=== PATIENT | female | born 1995 | race Caucasian/White ===

== ENCOUNTER 2016-12-24 06:50 | Emergency (ER) | payer OTHER ==
[~2016-12-24] VITALS: Ht 154.9 cm; Wt 57.0 kg
[2016-12-24 06:54] VITALS: Ht 154.9 cm; Wt 57.0 kg
[2016-12-24] MEDS ORDERED: ONDANSETRON 4 MG INJ IV STA (07:52)
[2016-12-24] MEDS ORDERED: KETOROLAC 30 MG INJ IV STA (07:52)
--- NOTE | 2016-12-24 07:52 | ERD ---
ER Documentation Chief Complaint Date/Time DATE: 12/24/16 TIME: 07:46 Chief Complaint CAME IN VIA INTAKE DUE TO LEFT FLANK PAIN AND FEVER SINCE LAST NIGHT HPI 21-year-old female presents emergency department for left flank pain that started last night. Reports that she felt like she had a fever last night but she never took her temperature. Had a nonbilious and nonbloody vomiting 4 in the past 24 hours. Has difficulty walking due to abdominal pain. Last menstrual period: 12/12/2016 A0. Denies headache, loss of consciousness, dizziness, blurry vision, changes in vision, photophobia, facial pain, ear pain, throat pain, difficulty swallowing, neck pain, shoulder pain, chest pain, cough, hemoptysis, loss of appetite, hematochezia, diarrhea, constipation, urinary symptoms, , the possibility of being , bladder and bowel incontinences, extremity weakness, extremity tenderness, numbness or tingling sensation, difficulty walking, recent travel, recent exposure to illness, recent antibiotic use in the last 3 months. No known drug allergies. No past medical history. No surgical history. Not taking any prescription medications at home. Social history: Not working at this time. Denies smoking, use of alcohol, use of illegal drugs. ROS All systems reviewed and are negative except as per history of present illness. Medications Home Meds Active Scripts Ondansetron Hcl* (Zofran*) 4 Mg Tablet, 4 MG PO Q8H Y for NAUSEA AND/OR VOMITING , #30 TAB Prov:PASILABAN,KLAR F 12/24/16 Acetaminophen* (Tylophen*) 500 Mg Capsule, 1 CAP PO Q6H Y for PAIN AND OR ELEVATED TEMP, #20 CAP Prov:PASILABAN,KLAR F 12/24/16 Ibuprofen* (Motrin*) 600 Mg Tab, 600 MG PO Q8 Y for PAIN, #30 TAB Prov:PASILABAN,KLAR F 12/24/16 Physical Exam Vitals Vital Signs Date Time Temp Pulse Resp B/P Pulse Ox O2 Delivery O2 Flow Rate FiO2 12/24/16 06:54 99.4 64 18 125/73 99 Physical Exam CONSTITUTIONAL: Well-appearing; well-nourished; in no apparent distress. HEAD: Normocephalic; atraumatic. EYES: Conjunctiva clear, sclera non-icteric, EOM intact. PERRL Ears: Hearing intact. EACs clear, TMs non-bulging, non-inflamed, translucent & mobile, ossicles normal appearance, No obstructions, no erythema, no discharges Nose: No obstructions. No polyps. No external lesions. Mucosa non-inflamed. No external lesions, septum and turbinates normal. No rhinorrhea. No discharges. Frontal sinus is non-tender to palpation. Maxillary sinus is non-tender to palpation. MOUTH: Moist mucous membranes, no lesion, no obstructions, no vesicles, no thrush, patent airway Throat: Uvula in midline. Right tonsil is +1 with no erythema, no exudate. Left tonsil is +1 with no erythema, no exudate. Tolerating secretions well. Good gag reflex. Patent airway. Neck: Supple, without lesions, bruits, or adenopathy. No mass. Thyroid non- enlarged and non-tender to palpation. CHEST: Symmetrical chest. Respirations even and not labored. No retractions noted. CARDIOVASCULAR: Normal S1, S2. RRR. No murmurs, gallops. RESPIRATORY: Normal chest excursion with respiration; breath sounds clear and equal bilaterally; no wheezes, rhonchi, or rales. Breathing even and unlabored. Speaking in clear, full, and complete sentences w/ ease. ABDOMEN: Normal bowel sounds normal. Soft, round, non-distended, non-guarding, no rebound, no organomegaly, no masses, no pulsating abdominal mass. Has lower abdominal tenderness on palpation. Difficulty walking due to left flank pain and lower abdominal pain. No hernia. No peritoneal signs. : Left-sided CVA tenderness. BACK: Symmetrical shoulder. Spine is midline without deformity, tenderness. No evidence of trauma or deformity. PELVIS: Stable pelvis. No evidence of trauma or deformity. MUSCULOSKELETAL: Normal gait and station. No misalignment, asymmetry, crepitation, defects, tenderness, masses, effusions, decreased range of motion, instability, atrophy or abnormal strength or tone in the head, neck, spine, ribs , pelvis or extremities. No calf tenderness. NEUROVASCULAR: Distal pulses are present. Pedal pulse are present, equal, and normal. Capillary refills are < 2 seconds. NEUROLOGIC: Alert and oriented x4. Speaks full and clear sentences. Cranial Nerves II-XII normal. Sensation to pain, touch, and proprioception normal. Grossly unremarkable. No neurologic deficits. Romberg test is negative. PSYCHOLOGICAL: The patients mood and manner are appropriate. No hallucinations , delusions. Not SI. Not HI. Has the capacity to decide for self SKIN: Normal for age and ethnicity; warm; dry; good turgor; no apparent lesions or exudates. No rashes, hives, discoloration. Intact. Result Diagram: 12/24/16 0800 12/24/16 0800 Results 24 hrs Laboratory Tests Test 12/24/16 08:00 White Blood Count 9.910^3/ul Red Blood Count 3.8410^6/ul Hemoglobin 11.5g/dl Hematocrit 34.9% Mean Corpuscular Volume 90.9fl Mean Corpuscular Hemoglobin 29.9pg Mean Corpuscular Hemoglobin Concent 33.0g/dl Red Cell Distribution Width 12.8% Platelet Count 62275^3/UL Mean Platelet Volume 9.9fl Neutrophils % 79.3% Lymphocytes % 14.9% Monocytes % 4.2% Eosinophils % 0.6% Basophils % 0.7% Nucleated Red Blood Cells % 0.0/100WBC Neutrophils # 7.810^3/ul Lymphocytes # 1.510^3/ul Monocytes # 0.410^3/ul Eosinophils # 0.110^3/ul Basophils # 0.110^3/ul Nucleated Red Blood Cells # 0.010^3/ul Urine Color YELLOW Urine Clarity CLOUDY Urine pH 6.0 Urine Specific [place] 1.020 Urine Ketones NEGATIVEmg/dL Urine Nitrite NEGATIVEmg/dL Urine Bilirubin NEGATIVEmg/dL Urine Urobilinogen NEGATIVEmg/dL Urine Leukocyte Esterase NEGATIVELeu/ul Urine Microscopic RBC > 182/HPF Urine Microscopic WBC 9/HPF Urine Squamous Epithelial Cells FEW/HPF Urine Hemoglobin 3+mg/dL Urine Glucose NEGATIVEmg/dL Urine Total Protein 1+mg/dl Sodium Level 144mmol/L Potassium Level 3.9mmol/L Chloride Level 101mmol/L Carbon Dioxide Level 26mmol/L Anion Gap 21 Blood Urea Nitrogen 14mg/dl Creatinine 0.76mg/dl Glucose Level 137mg/dl Calcium Level 9.9mg/dl Total Bilirubin 0.4mg/dl Direct Bilirubin 0.00mg/dl Indirect Bilirubin 0.4mg/dl Aspartate Amino Transf (AST/SGOT) 21IU/L Alanine Aminotransferase (ALT/SGPT) 22IU/L Alkaline Phosphatase 79IU/L Total Protein 7.5g/dl Albumin 4.6g/dl Globulin 2.90g/dl Albumin/Globulin Ratio 1.58 Amylase Level 79U/L Lipase 77U/L Current Medications Medications (Trade) Dose Ordered Sig/Pool Route PRN Reason Start Time Stop Time Status Last Admin Dose Admin Ondansetron HCl (Zofran Inj) 4 mg ONCE STAT IV 12/24/16 07:52 12/24/16 07:57 DC 12/24/16 08:02 Ketorolac Tromethamine 30 mg 30 mg ONCE STAT IV 12/24/16 07:52 12/24/16 07:57 DC 12/24/16 08:06 Sodium Chloride 1,000 ml @ 1,000 mls/hr Q1H ONCE IV 12/24/16 08:00 12/24/16 08:59 DC 12/24/16 08:06 Sodium Chloride (NS) 100 ml @ ud STK-MED ONCE .ROUTE 12/24/16 09:41 12/24/16 09:42 DC Iohexol (Omnipaque 300mg/ ml) 150 ml STK-MED ONCE .ROUTE 12/24/16 09:41 12/24/16 09:42 DC Procedures/MDM Examination: Please see physical examination. Disease process, medical treatment was explained to the patient and family member. They verbalized understanding and agreed with the diagnostic tests, medical treatment, and follow-up care. Radiology: CT of the abdomen and pelvis with IV contrast Impression: There is mild periportal edema. There is a small amount of free fluid in the cul-de-sac. There is small umbilical hernia containing fat. No evidence of appendicitis or diverticulitis. No obstructing ureterolithiasis or nephrolithiasis is identified. Case was discussed with supervising physician, Dr. Geronimo Burnett who recommended pelvic exam. Patient refused pelvic exam stating that she is not comfortable to have this procedure/examination at this time and prefers to follow-up with her primary care physician in the next 24-48 hours and have her primary care physician refer her to [facility] in the next 48 hours. Patient's decision of not having pelvic exam was discussed with supervising physician, Dr. Geronimo Burnett who agreed with the medical decision making to discharge the patient. Blood works: Reviewed. POC urine : Negative. Urine was sent for gonorrhea and chlamydia test: Awaiting for results. Urinalysis: Reviewed. Treatment: IV insertion. Normal saline 1 L bolus 1. Zofran IV 1. Toradol IV 1. Re-evaluation: Denies headache, dizziness, blurry vision, neck pain, shoulder pain, chest pain, back pain, abdominal pain, nausea, vomiting. No episode of emesis in the emergency department. Alert and oriented 4. Speaks full and clear sentences. Respirations even and unlabored. Lung sounds clear to auscultation. Active bowel sounds. There is no right upper/right lower/ epigastric/left upper/left lower abdominal tenderness and light and deep palpation. Negative on Rovsings sign. Negative Brett sign. No peritoneal signs. Ambulatory with steady gait. No neurovascular deficits. No neurological deficits. Consultation: None. Differential diagnosis: Appendicitis versus cholecystitis versus pancreatitis versus nephrolithiasis versus pyelonephritis versus urinary tract infection Medical decision m[age]-year-old female presents emergency department for left flank pain that started last night. Reports that she felt like she had a fever last night but she never took her temperature. Had a nonbilious and nonbloody vomiting 4 in the past 24 hours. Has difficulty walking due to abdominal pain. Patient's complaint, patient's history about her complaint, my physical findings, diagnostic test results, my reevaluation are consistent with final diagnosis of pelvic pain, abdominal pain. Hemodynamically stable on discharge. Medications prescribed are the following: Motrin. Zofran. Tylenol. Patient and family member are made aware of the side effects and adverse reactions of the medications prescribed. Instructed on when to seek emergent and medical attention in case allergic/anaphylactic reactions or severe side effects and or adverse reactions to medications. Patient and family member verbalized understanding. Patient instructed Instructed to follow-up with his PCP in 24-48 hours. PCP to refer patient to [facility] in the next 48 hours. Instructed to Call 911 for chest pain, shortness of breath. Advised to come back here in ED as soon as possible for severity of symptoms which includes but not limited to: any new symptoms; shortness of breath/difficulty of breathing; cardiovascular changes; severe gastrointestinal symptoms; signs and symptoms of bleeding and or infection; signs of compartment syndrome/neurovascular changes; neurological changes/deficits. Patient and family member verbalized understanding. Upon discharge, patient is alert and oriented x 4, speaks full and clear sentences, denies pain, has no neurological deficits, has no neurovascular deficits, difficulty of breathing. Breathing even and unlabored. Lung sounds are clear to auscultation. Not in distress. Appears comfortable. Ambulatory with steady gait. Appears satisfied with care provided here in ED. Departure Diagnosis: Primary Impression: Abdominal pain Additional Impression: Pelvic pain Condition: Stable Additional Instructions: Instructed to follow-up with his PCP in 24-48 hours. PCP to refer patient to [facility] in the next 48 hours. Instructed to Call 911 for chest pain, shortness of breath. Advised to come back here in ED as soon as possible for severity of symptoms which includes but not limited to: any new symptoms; shortness of breath/difficulty of breathing; cardiovascular changes; severe gastrointestinal symptoms; signs and symptoms of bleeding and or infection; signs of compartment syndrome/neurovascular changes; neurological changes/deficits. Patient and family member verbalized understanding. AMANDA FELIX Dec 24, 2016 07:52
[2016-12-24] MEDS ORDERED: SOD CHLORIDE 0.9% 1,000 ML IV ONE (08:00)
[2016-12-24 08:17] LABS: ADD SCAN DIFF NO
[2016-12-24 08:34] LABS: BASOPHIL # 0.1 10^3/ul (0.0-0.1); BASOPHILS % 0.7 % (0.0-2.0); EOSINOPHILS # 0.1 10^3/ul (0.0-0.5); EOSINOPHILS % 0.6 % (0.0-7.0); HEMATOCRIT 34.9 % (37.0-47.0); HEMOGLOBIN 11.5 g/dl (12.0-16.0); LYMPHOCYTES # 1.5 10^3/ul (0.8-2.9); LYMPHOCYTES % 14.9 % (18.0-55.0); MEAN CORPUSCULAR HEMOGLOBIN 29.9 pg (29.0-33.0); MEAN CORPUSCULAR VOLUME 90.9 fl (72.0-104.0); MEAN PLATELET VOLUME 9.9 fl (7.4-10.4); MONOCYTE # 0.4 10^3/ul (0.3-0.9); MONOCYTES % 4.2 % (0.0-13.0); NEUTROPHIL # 7.8 10^3/ul (1.6-7.5); NEUTROPHILS % 79.3 % (30.0-74.0); PLATELET COUNT 268 10^3/UL (140-415); RED BLOOD COUNT 3.84 10^6/ul (4.20-5.40); RED CELL DISTRIBUTION WIDTH 12.8 % (11.5-14.5); WHITE BLOOD COUNT 9.9 10^3/ul (4.8-10.8)
[2016-12-24 08:36] LABS: ADD UMIC YES; UR ASCORBIC ACID NEGATIVE (NEGATIVE); UR BILIRUBIN (Dip) NEGATIVE (NEGATIVE); UR BLOOD (Dip) 3+ mg/dL (NEGATIVE); UR CLARITY CLOUDY (CLEAR); UR COLOR YELLOW (YELLOW); UR GLUCOSE (Dip) NEGATIVE (NEGATIVE); UR KETONES (Dip) NEGATIVE (NEGATIVE); UR LEUKOCYTE ESTERASE (Dip) NEGATIVE Leu/ul (NEGATIVE); UR NITRITE (Dip) NEGATIVE (NEGATIVE); UR RBC > 182 /HPF (0-5); UR SQUAMOUS EPITHELIAL CELL FEW /HPF (FEW); UR TOTAL PROTEIN (Dip) 1+ mg/dl (NEGATIVE); UR UROBILINOGEN (Dip) NEGATIVE (NEGATIVE)
[2016-12-24 08:50] LABS: ALBUMIN 4.6 g/dl (3.3-4.9); ALBUMIN/GLOBULIN RATIO 1.58; BILIRUBIN,INDIRECT 0.4 mg/dl (0-1.1); BILIRUBIN,TOTAL 0.4 mg/dl (0.2-1.3); CALCIUM 9.9 mg/dl (8.4-10.2); CREATININE 0.76 mg/dl (0.44-1.00); POTASSIUM 3.9 mmol/L (3.5-5.1); TOTAL PROTEIN 7.5 g/dl (6.1-8.1)
[2016-12-24] MEDS ORDERED: SOD CHLORIDE 0.9% 100 ML ONE (09:41)
[2016-12-24] MEDS ORDERED: IOHEXOL 300MG/ML 150 ML BTL ONE (09:41)
--- NOTE | 2016-12-24 10:12 | RADRPT ---
PROCEDURE: CT scan of the abdomen and pelvis with IV contrast. CLINICAL INDICATION: 21-year-old female with abdominal pain and difficulty walking. TECHNIQUE: Thin section axial, coronal and sagittal images were performed through the abdomen and pelvis following uncomplicated intravenous administration of 80 ccs of Omnipaque-300 contrast. Radiation Dose: CTDI: 6 and DLP: 295 One or more of the following dose reduction techniques were used: - Automated exposure control. - Adjustment of the mA and/or kV according to patient size. Use of iterative reconstruction technique. COMPARISON: None FINDINGS: Soft tissues: There is a small midline umbilical hernia measuring up to 1.3 cm AP. Lungs and pleural spaces: The lungs are mildly hyperinflated. The pulmonary vasculature is normal. No infiltrate or pulmonary nodule is identified. There is no evidence of a pleural effusion. Heart: Normal. The liver, common bile duct and gallbladder: There is periportal edema. The hepatic and portal vein s are patent. The liver is normal in size measuring 13.7 cm AP. No hepatic mass or intrahepatic bi liary ductal dilatation is identified. The gallbladder and gallbladder wall are normal. Gastrointestinal: The stomach and small bowel loops are normal. There is fecal material in the asce nding colon. There is no evidence of diverticulosis, diverticulitis or appendicitis. The vermiform appendix is normal. Pancreas: The pancreas and extrahepatic common bile duct are normal. Kidneys, bladder and adrenal glands : Normal. No obstructing ureterolith or nephrolith is identifie d. Spleen: Normal. Lymph nodes: Normal. Reproductive system and pelvis : Normal. Some free fluid is present in the cul-de-sac. Bony elements: Normal. Vasculature: Normal. IMPRESSION: 1. There is mild periportal edema. 2. There is a small amount of free fluid in the cul-de-sac. 3. There is a small umbilical hernia containing fat. 4. No evidence of appendicitis or diverticulitis. No obstructing ureterolith or nephrolith is iden tified. RPTAT:AAJJ Physician Imtiaz Date Time Electronically viewed and signed by Physician Imtiaz on 12/24/2016 10:12 JM/
[2016-12-24] MEDS ORDERED: IBUP-1542 PO (11:16)
[2016-12-24] MEDS ORDERED: ONDA4TAB8 PO (11:17)
[2016-12-24] MEDS ORDERED: ACET500C5 PO (11:17)
== END 2016-12-24 12:10 | disposition home or self-care (01) ==
LOC: FTE 06:50
DX: R10.2 Pelvic and perineal pain (principal); R11.10 Vomiting, unspecified
CPT/HCPCS: 74177; 80053; 81001; 82150; 83690; 85025; 87591; J1885; J2405; J7030; Q9967; Z7610; 96374; 96375

== ENCOUNTER 2017-08-04 23:54 | Emergency (ER) | END 2017-08-05 02:09 | disposition home or self-care (01) ==